=== PATIENT | male | born 1975 | race Caucasian/White ===

== ENCOUNTER 2017-01-30 15:00 | Outpatient (CLI) | payer OTHER | END 2017-01-30 15:15 | disposition home or self-care (01) | LOC: RT.N 15:00 | PROVIDERS: ATTEND Family Medicine | DX: R53.83 Other fatigue (principal) | CPT/HCPCS: 93005 ==

== ENCOUNTER 2017-08-07 08:00 | Outpatient (CLI) | payer OTHER | END 2017-08-07 08:01 | disposition home or self-care (01) | LOC: LAB.N 08:00 | PROVIDERS: ATTEND Family Medicine | DX: Z02.1 Encounter for pre-employment examination (principal) | CPT/HCPCS: 36415; 86317 ==